=== PATIENT | male | born 1950 | race Caucasian/White ===

== ENCOUNTER 2016-06-25 10:04 | Emergency (ER) | payer BC ==
[~2016-06-25] VITALS: Ht 177.8 cm; Wt 104.1 kg
[2016-06-25] MEDS ORDERED: WARFARIN SODIUM10 MG PO (11:18)
[2016-06-25] MEDS ORDERED: CELECOXIB200 MG PO (11:19)
[2016-06-25] MEDS ORDERED: OSTERA TABLET1 EACH PO (11:20)
[2016-06-25] MEDS ORDERED: DURICEF500 MG PO (11:49)
[2016-06-25 12:08] VITALS: BP 156/93
== END 2016-06-25 12:11 | disposition home or self-care (01) ==
LOC: EME 10:04
DX: S62.621B Displaced fracture of middle phalanx of left index finger, initial encounter for open fracture (principal); W29.4XXA Contact with nail gun, initial encounter; Z86.711 Personal history of pulmonary embolism; Z86.718 Personal history of other venous thrombosis and embolism; Z79.01 Long term (current) use of anticoagulants
CPT/HCPCS: 99281; 99284